=== PATIENT | female | born 1955 | race Caucasian/White ===

== ENCOUNTER 2018-07-11 08:41 | Emergency (ER) | payer MEDICARE, MEDICAID ==
[~2018-07-11] VITALS: Ht 157.5 cm; Wt 55.0 kg
[2018-07-11] MEDS ORDERED: normal saline 1000ML IV soln IVB ONE (08:50)
[2018-07-11] MEDS ORDERED: ondansetron/PF 4mg/2ml inj IV ONE ×2 (08:50→10:50)
[2018-07-11] MEDS ORDERED: LORazepam 2 mg/ml vial IV ONE (08:50)
[2018-07-11 09:55] LABS: BASOPHILS # (AUTO) 0.1 X10'3 (0-0.2); BASOPHILS % (AUTO) 0.6 % (0-1); EOSINOPHILS # (AUTO) 0.2 X10'3 (0-0.9); HEMOGLOBIN 14.6 g/dl (12.0-16.0); LYMPHOCYTES # (AUTO) 3.8 X10'3 (1.1-4.8); LYMPHOCYTES % (AUTO) 40.7 % (21-51); MEAN CORPUSCULAR HEMOGLOBIN 30.6 PG (27.0-31.0); MEAN CORPUSCULAR VOLUME 90.2 FL (78-98); MEAN PLATELET VOLUME 11.8 FL (7.4-10.4); MONOCYTES # (AUTO) 0.5 X10'3 (0-0.9); MONOCYTES % (AUTO) 5.7 % (2-12); NEUTROPHILS # (AUTO) 4.8 X10'3 (1.8-7.7); PLATELET COUNT 126 X10'3 (140-440); RED BLOOD COUNT 4.77 X10'6 (4.20-5.60); RED CELL DISTRIBUTION WIDTH 13.5 % (11.5-14.5); WHITE BLOOD COUNT 9.4 X10'3 (4.5-11.0)
[2018-07-11 10:00] LABS: ALANINE AMINOTRANSFERASE 17 U/L (12-78); ALBUMIN 3.8 G/DL (3.4-5.0); ALBUMIN/GLOBULIN RATIO 1.1 (1.1-1.5); ALKALINE PHOSPHATASE 60 IU/L (46-116); ANION GAP 17 (8-16); ASPARTATE AMINO TRANSFERASE 19 U/L (10-37); BILIRUBIN,TOTAL 0.8 MG/DL (0.1-1.0); BLOOD UREA NITROGEN 19 MG/DL (7-18); BUN/CREATININE RATIO 18.3 (6.6-38.0); CALCIUM 9.7 MG/DL (8.5-10.1); CHLORIDE 104 MMOL/L (99-107); CREATININE 1.04 MG/DL (0.40-0.90); GLUCOSE 152 MG/DL (70-104); POTASSIUM 3.1 MMOL/L (3.5-5.1); SODIUM 143 MMOL/L (135-145); TOTAL CARBON DIOXIDE 21.6 MMOL/L (24-32); TOTAL PROTEIN 7.2 G/DL (6.4-8.2); eGFR 53 ML/MIN
[2018-07-11 10:07] LABS: LIPASE 194 U/L (73-393); MAGNESIUM 1.5 MG/DL (1.5-2.4)
[2018-07-11 10:16] LABS: LARGE PLATELETS FEW; PLATELET ESTIMATE DECREASED
[2018-07-11] MEDS ORDERED: potassium Cl 20 mEq SR tablet PO ONE (10:40)
[2018-07-11] MEDS ORDERED: LORazepam 0.5 MG tablet PO PRN (10:50)
[2018-07-11 11:18] VITALS: BP 111/75
[2018-07-11] MEDS ORDERED: ONDA4TAB12 PO (11:37)
[2018-07-11] MEDS ORDERED: TRAM50TA2 PO (11:37)
[2018-07-11] MEDS ORDERED: LOPE2TAB25 PO (11:37)
[2018-07-11] MEDS ORDERED: traMADol 50MG tablet PO ONE (11:40)
== END 2018-07-11 13:03 | disposition home or self-care (01) ==
LOC: ER 08:42
DX: E86.0 Dehydration (principal); E87.6 Hypokalemia; G89.29 Other chronic pain; R11.2 Nausea with vomiting, unspecified; R19.7 Diarrhea, unspecified; F11.23 Opioid dependence with withdrawal; G62.9 Polyneuropathy, unspecified; R07.9 Chest pain, unspecified; Z88.1 Allergy status to other antibiotic agents; Z88.0 Allergy status to penicillin
CPT/HCPCS: 36415; 71045; 80053; 83690; 83735; 84484; 85025; 93005; 96374; 96375; 99284; J2060; J2405; J7030